=== PATIENT | male | born 1980 | race Caucasian/White ===

== ENCOUNTER 2017-10-23 12:25 | Inpatient (IN) | payer BC, OTHER ==
[~2017-10-23] VITALS: Ht 177.8 cm; Wt 74.8 kg
[2017-10-23] MEDS ORDERED: MAG HYDROX/AL HYDROX/SIMETH 30 ML LIQUID UDC PO PRN (15:45)
[2017-10-23] MEDS ORDERED: DICYCLOMINE HCL 20 MG TABLET PO PRN (15:45)
[2017-10-23] MEDS ORDERED: LOPERAMIDE HCL 2 MG CAPSULE PO PRN ×2 (15:45)
[2017-10-23] MEDS ORDERED: ACETAMINOPHEN 325 MG TABLET PO PRN (15:45)
[2017-10-23] MEDS ORDERED: THIAMINE HCL 200 MG/2 ML VIAL IM ONE (15:45)
[2017-10-23] MEDS ORDERED: ONDANSETRON 4 MG/2 ML VIAL IM PRN (15:45)
[2017-10-23] MEDS ORDERED: ONDANSETRON ODT 4 MG TAB.RAPDIS SL PRN (15:45)
[2017-10-23] MEDS ORDERED: CLONIDINE HCL 0.1 MG TABLET PO PRN (15:45)
[2017-10-23] MEDS ORDERED: MIRALAX 17 GM POWD.PACK PO PRN (15:45)
[2017-10-23] MEDS ORDERED: LORAZEPAM 1 MG TABLET PO PRN ×2 (15:45)
[2017-10-23] MEDS ORDERED: IBUPROFEN 600 MG TABLET PO PRN (15:45)
[2017-10-23] MEDS ORDERED: LORAZEPAM 2 MG/1 ML VIAL IM PRN (15:45)
[2017-10-23] MEDS ORDERED: RITO100T PO (15:59)
[2017-10-23 16:00] VITALS: BP 127/97
[2017-10-23] MEDS ORDERED: RALT400T PO (16:00)
[2017-10-23] MEDS ORDERED: DARU800T2 PO (16:02)
[2017-10-23 16:33] LABS: *AMPHETAMINE, URINE NEGATIVE (NEGATIVE); *BARBITURATE, URINE NEGATIVE (NEGATIVE); *CANNABINOID, URINE NEGATIVE (NEGATIVE); *COCCAINE, URINE NEGATIVE (NEGATIVE); *OPIATE, URINE NEGATIVE (NEGATIVE); *PHENCYCLIDINE SCREEN,URINE NEGATIVE (NEGATIVE)
[2017-10-23] MEDS: ISENTRESS 400 MG PO SCH (17:30)
[2017-10-23] MEDS: LORAZEPAM 1 MG TABLET PO SCH ×2 (17:30→21:28)
[2017-10-23] MEDS ORDERED: [UNRECOGNIZED DRUG - CODE] TP (19:37)
[2017-10-23 20:00] VITALS: BP 124/84
[2017-10-23 20:44] LABS: ETHANOL < 3 MG/DL (0-0)
[2017-10-23 20:48] LABS: BASOPHILS # (AUTO) 0.1 K/uL (0.0-8.0); EOSINOPHILS # (AUTO) 0.1 K/uL (0.0-0.7); EOSINOPHILS % (AUTO) 1.3 % (0.0-7.0); HEMATOCRIT 43.3 % (36.7-47.1); HEMOGLOBIN 15.1 g/dL (12.5-16.3); LYMPHOCYTES # (AUTO) 2.6 K/uL (20.0-40.0); LYMPHOCYTES % (AUTO) 43.1 % (20.5-51.5); MEAN CORPUSCULAR HEMOGLOBIN 36.4 uug (23.8-33.4); MEAN CORPUSCULAR HGB CONC 35 g/dL (32.5-36.3); MEAN CORPUSCULAR VOLUME 104.6 fL (73.0-96.2); MONOCYTES # (AUTO) 0.9 K/uL (2.0-10.0); MONOCYTES % (AUTO) 15.7 % (0.0-11.0); NEUTROPHILS # (AUTO) 2.3 K/uL (1.8-8.9); NEUTROPHILS % (AUTO) 38.9 % (38.5-71.5); PLATELET COUNT (AUTO) 225 K/uL (152-348); RED BLOOD CELL COUNT(AUTO) 4.13 MIL/uL (4.06-5.63)
[2017-10-23 20:52] LABS: ALANINE AMINOTRANSFERASE 69 U/L (16-63); ALKALINE PHOSPHATASE 67 U/L (50-136); AMYLASE 45 U/L (25-115); ASPARTATE AMINOTRANSFERASE 49 U/L (15-37); BILIRUBIN,TOTAL 0.6 mg/dL (0.2-1.0); CARBON DIOXIDE 31 mmol/L (21-32); CHLORIDE 100 mmol/L (98-107); GLUCOSE 118 mg/dL (74-106); POTASSIUM 3.5 mmol/L (3.5-5.1); TOTAL PROTEIN, SERUM 7.5 g/dL (6.4-8.2); UREA NITROGEN, BLOOD 9 mg/dL (7-18)
[2017-10-23 21:19] LABS: BAND % (MANUAL) 4 % (0-10); EOSINOPHILS % (MANUAL) 2 % (0-8); LYMPHOCYTES % (MANUAL) 45 % (20-40); MONOCYTES % (MANUAL) 13 % (2-10); NEUTROPHILS % (MANUAL) 36 % (42-75)
[2017-10-23] MEDS: NORVIR 100 MG PO SCH (21:28)
[2017-10-23] MEDS: diphenhydrAMINE 50 MG CAPSULE PO PRN (21:28)
[2017-10-23] MEDS: PREZISTA 800 MG PO SCH (21:29)
[2017-10-24] VITALS: BP 100/69
[2017-10-24 04:00] VITALS: BP 103/71
[2017-10-24 08:00] VITALS: BP 117/85
[2017-10-24] MEDS ORDERED: PREZISTA 800 MG PO SCH (09:00)
[2017-10-24] MEDS ORDERED: NORVIR 100 MG PO SCH (09:00)
[2017-10-24] MEDS ORDERED: TUBERCULIN,PURIF.PROT.DERIV. 5 TU/0.1 ML TEST ID ONE (09:00)
[2017-10-24] MEDS: FOLIC ACID 1 MG TABLET PO SCH (09:05)
[2017-10-24] MEDS: MULTIVITAMINS,THERAPEUTIC TABLET PO SCH (09:05)
[2017-10-24] MEDS: THIAMINE HCL 100 MG TABLET PO SCH (09:05)
[2017-10-24] MEDS: LORAZEPAM 1 MG TABLET PO SCH ×3 (09:05→21:22)
[2017-10-24] MEDS: ISENTRESS 400 MG PO SCH ×2 (09:05→16:45)
[2017-10-24] MEDS ORDERED: PNEUMOCOCCAL 23-VAL P-SAC VAC 0.5 ML VIAL IM ONE (09:15)
[2017-10-24] MEDS ORDERED: INFLUENZA VACCINE 2017-2018 0.5 ML DISP.SYRIN IM ONE (09:15)
[2017-10-24 12:00] VITALS: BP 128/100
[2017-10-24 16:00] VITALS: BP_SYST 118; BP_SYST 127; BP_DIAS 91; BP_DIAS 96
[2017-10-24 20:30] VITALS: BP 125/97
[2017-10-24] MEDS: GABAPENTIN 300 MG CAPSULE PO SCH (21:22)
[2017-10-24] MEDS: NORVIR 100 MG PO SCH (21:22)
[2017-10-24] MEDS: diphenhydrAMINE 50 MG CAPSULE PO PRN (21:22)
[2017-10-24] MEDS: PREZISTA 800 MG PO SCH (21:22)
[2017-10-25] VITALS (7 sets, daily range): BP systolic 106–121; BP diastolic 75–89
[2017-10-25 03:07] LABS: *BASOS 1 % (Not Estab.); *BASOS,ABSOLUTE 0.1 x10E3/uL (0.0-0.2); *EOS 1 % (Not Estab.); *EOS ABSOLUTE 0.1 x10E3/uL (0.0-0.4); *HCT 44.4 % (37.5-51.0); *HGB 14.9 g/dL (13.0-17.7); *IMMATURE GRANULOCYTES 1 % (Not Estab.); *LYMPHOCYTES 42 % (Not Estab.); *LYMPHOCYTES ABSOLUTE 2.7 x10E3/uL (0.7-3.1); *MCH 35.5 pg (26.6-33.0); *MCHC 33.6 g/dL (31.5-35.7); *MCV 106 fL (79-97); *MONOCYTES 14 % (Not Estab.); *MONOCYTES ABSOLUTE 0.9 x10E3/uL (0.1-0.9); *NEUTROPHILS 41 % (Not Estab.); *NEUTROPHILS ABSOLUTE 2.5 x10E3/uL (1.4-7.0); *PLT 268 x10E3/uL (150-379); *RDW 13.8 % (12.3-15.4); *WBC 6.2 x10E3/uL (3.4-10.8)
[2017-10-25] MEDS: MULTIVITAMINS,THERAPEUTIC TABLET PO SCH (08:49)
[2017-10-25] MEDS: THIAMINE HCL 100 MG TABLET PO SCH (08:49)
[2017-10-25] MEDS: FOLIC ACID 1 MG TABLET PO SCH (08:49)
[2017-10-25] MEDS: ISENTRESS 400 MG PO SCH ×2 (08:49→16:00)
[2017-10-25] MEDS: GABAPENTIN 300 MG CAPSULE PO SCH ×3 (08:49→21:08)
[2017-10-25] MEDS ORDERED: INFLUENZA VACCINE 2017-2018 0.5 ML DISP.SYRIN IM ONE (09:00)
[2017-10-25] MEDS ORDERED: PNEUMOCOCCAL 23-VAL P-SAC VAC 0.5 ML VIAL IM ONE (09:00)
[2017-10-25] MEDS ORDERED: LORAZEPAM 1 MG TABLET PO SCH ×2 (09:00→21:00)
[2017-10-25 11:06] LABS: HEPATITIS B SURFACE AG Negative (Negative)
[2017-10-25] MEDS ORDERED: diphenhydrAMINE 50 MG CAPSULE PO PRN (12:00)
[2017-10-25] MEDS: LORAZEPAM 1 MG TABLET PO SCH ×2 (12:30→16:00)
[2017-10-25 13:06] LABS: *HELPER T-LYMPH MARKR(CD4)ABSO 707 /uL (359-1519); *HELPER T-LYNPH MARKER CD4)% 26.2 % (30.8-58.5)
[2017-10-25] MEDS: NORVIR 100 MG PO SCH (21:08)
[2017-10-25] MEDS: PREZISTA 800 MG PO SCH (21:08)
[2017-10-25] MEDS: QUETIAPINE FUMARATE 25 MG TABLET PO SCH (21:08)
[2017-10-26 08:00] VITALS: BP 113/74
[2017-10-26] MEDS: GABAPENTIN 300 MG CAPSULE PO SCH ×3 (08:45→21:03)
[2017-10-26] MEDS: THIAMINE HCL 100 MG TABLET PO SCH (08:45)
[2017-10-26] MEDS: FOLIC ACID 1 MG TABLET PO SCH (08:45)
[2017-10-26] MEDS: MULTIVITAMINS,THERAPEUTIC TABLET PO SCH (08:45)
[2017-10-26] MEDS: ISENTRESS 400 MG PO SCH ×2 (08:46→16:33)
[2017-10-26] MEDS ORDERED: LORAZEPAM 1 MG TABLET PO SCH ×2 (09:00→21:00)
[2017-10-26] MEDS ORDERED: DOCUSATE SODIUM 250 MG CAPSULE PO PRN (11:15)
[2017-10-26 12:00] VITALS: BP 142/92
[2017-10-26] MEDS: HYDROXYZINE PAMOATE 25 MG CAPSULE PO PRN (12:28)
[2017-10-26] MEDS: LORAZEPAM 1 MG TABLET PO SCH (14:16)
[2017-10-26 16:00] VITALS: BP 133/76
[2017-10-26 20:45] VITALS: BP 124/82
[2017-10-26] MEDS: QUETIAPINE FUMARATE 25 MG TABLET PO SCH (21:03)
[2017-10-26] MEDS: PREZISTA 800 MG PO SCH (21:06)
[2017-10-26] MEDS: NORVIR 100 MG PO SCH (21:06)
[2017-10-27 04:50] VITALS: BP 124/82
[2017-10-27 08:00] VITALS: BP 113/68
[2017-10-27] MEDS: GABAPENTIN 300 MG CAPSULE PO SCH ×3 (08:45→20:55)
[2017-10-27] MEDS: LORAZEPAM 1 MG TABLET PO SCH ×4 (08:45→20:54)
[2017-10-27] MEDS: THIAMINE HCL 100 MG TABLET PO SCH (08:45)
[2017-10-27] MEDS: MULTIVITAMINS,THERAPEUTIC TABLET PO SCH (08:45)
[2017-10-27] MEDS: FOLIC ACID 1 MG TABLET PO SCH (08:46)
[2017-10-27] MEDS: ISENTRESS 400 MG PO SCH ×2 (08:47→16:40)
[2017-10-27 12:18] VITALS: BP 120/89
[2017-10-27 16:00] VITALS: BP 122/82
[2017-10-27 20:00] VITALS: BP 138/96
[2017-10-27] MEDS: PREZISTA 800 MG PO SCH (20:55)
[2017-10-27] MEDS: QUETIAPINE FUMARATE 25 MG TABLET PO SCH (20:55)
[2017-10-27] MEDS: NORVIR 100 MG PO SCH (20:56)
[2017-10-28] VITALS: BP 92/50
[2017-10-28 08:00] VITALS: BP 112/75
[2017-10-28] MEDS: THIAMINE HCL 100 MG TABLET PO SCH (08:25)
[2017-10-28] MEDS: MULTIVITAMINS,THERAPEUTIC TABLET PO SCH (08:25)
[2017-10-28] MEDS: FOLIC ACID 1 MG TABLET PO SCH (08:25)
[2017-10-28] MEDS: ISENTRESS 400 MG PO SCH ×2 (08:25→16:44)
[2017-10-28] MEDS: GABAPENTIN 300 MG CAPSULE PO SCH ×3 (08:25→20:51)
[2017-10-28] MEDS ORDERED: LORAZEPAM 1 MG TABLET PO SCH (09:00)
[2017-10-28 12:00] VITALS: BP 131/87
[2017-10-28] MEDS: HYDROXYZINE PAMOATE 25 MG CAPSULE PO PRN (14:36)
[2017-10-28] MEDS ORDERED: GABA-534 PO (14:38)
[2017-10-28] MEDS ORDERED: HYDR-3895 PO (14:38)
[2017-10-28] MEDS ORDERED: QUET25TA PO (14:38)
[2017-10-28 16:00] VITALS: BP 137/85
[2017-10-28 20:00] VITALS: BP 126/91
[2017-10-28] MEDS: NORVIR 100 MG PO SCH (20:49)
[2017-10-28] MEDS: QUETIAPINE FUMARATE 25 MG TABLET PO SCH (20:50)
[2017-10-28] MEDS: PREZISTA 800 MG PO SCH (20:50)
[2017-10-29] VITALS: BP 111/66
[2017-10-29 04:00] VITALS: BP 112/70
[2017-10-29 08:00] VITALS: BP 118/63
[2017-10-29] MEDS: THIAMINE HCL 100 MG TABLET PO SCH (08:18)
[2017-10-29] MEDS: GABAPENTIN 300 MG CAPSULE PO SCH (08:18)
[2017-10-29] MEDS: MULTIVITAMINS,THERAPEUTIC TABLET PO SCH (08:18)
[2017-10-29] MEDS: FOLIC ACID 1 MG TABLET PO SCH (08:18)
[2017-10-29] MEDS: ISENTRESS 400 MG PO SCH (08:20)
== END 2017-10-29 09:27 | disposition home or self-care (01) | DRG 895 ==
LOC: SRC 15:01
PROVIDERS: ADMIT Internal Medicine; ATTEND Internal Medicine
PROC: HZ2ZZZZ Detoxification Services for Substance Abuse Treatment (ICD-10-PCS; principal; 2017-10-23)
PROC: HZ41ZZZ Group Counseling for Substance Abuse Treatment, Behavioral (ICD-10-PCS; 2017-10-24)
PROC: HZ31ZZZ Individual Counseling for Substance Abuse Treatment, Behavioral (ICD-10-PCS; 2017-10-26)
DX: F10.232 Alcohol dependence with withdrawal with perceptual disturbance (principal); K70.10 Alcoholic hepatitis without ascites; I15.9 Secondary hypertension, unspecified; F12.10 Cannabis abuse, uncomplicated; F17.211 Nicotine dependence, cigarettes, in remission; K29.20 Alcoholic gastritis without bleeding; Y90.9 Presence of alcohol in blood, level not specified; Z81.1 Family history of alcohol abuse and dependence; Z80.0 Family history of malignant neoplasm of digestive organs; Z82.0 Family history of epilepsy and other diseases of the nervous system; Z82.49 Family history of ischemic heart disease and other diseases of the circulatory system; R73.9 Hyperglycemia, unspecified; Z81.8 Family history of other mental and behavioral disorders; F41.9 Anxiety disorder, unspecified; Z79.899 Other long term (current) drug therapy
CPT/HCPCS: 36415; 70030-TC; 80307; 83735; 85025; 86361; 86580; 86592; 86705; 86803; 87340; 87806; 90686; 90732; G0480; Q0163